=== PATIENT | female | born 1945 | race Caucasian/White ===

== ENCOUNTER 2019-06-27 05:13 | Emergency (ER) | payer MEDICARE, BC ==
[~2019-06-27] VITALS: Ht 170.2 cm; Wt 90.7 kg
--- NOTE | 2019-06-27 05:20 | NUR ---
Patient BIB [facility] from home for c/o back pain for 2 weeks from thoracic are down to lumbar area. Stated pain mostlyon right sidei f back and now also having on left side on back. Patient states she took Clayton 10mg 5hrs [employer] and Soma 3hrs ago but was ineffective. Patient AAOX4. No cardiovascular concern. Denies any SOB. NO /GI concern.
--- NOTE | 2019-06-27 05:22 | NUR ---
Dr. Mulligan at bedside for MSE.
[2019-06-27] MEDS ORDERED: HYDROMORPHONE 1 MG/1 ML DISP.SYRIN ONE (05:31)
[2019-06-27] MEDS: HYDROMORPHONE 1 MG/1 ML DISP.SYRIN IM ONE (05:35)
[2019-06-27] MEDS: IV NS 1000 ML 1,000 ML IV ONE (05:55)
[2019-06-27] MEDS ORDERED: KETOROLAC TROMETHAMINE 15 MG INJ ONE (06:00)
[2019-06-27] MEDS: KETOROLAC TROMETHAMINE 15 MG INJ IVP ONE (06:03)
[2019-06-27 06:16] LABS: BASOPHILS # (AUTO) 0.1 K/uL (0.0-8.0); BASOPHILS % (AUTO) 0.9 % (0.0-2.0); EOSINOPHILS # (AUTO) 0.1 K/uL (0.0-0.7); EOSINOPHILS % (AUTO) 1.5 % (0.0-7.0); HEMATOCRIT 39.2 % (31.2-41.9); HEMOGLOBIN 12.9 g/dL (10.9-14.3); LYMPHOCYTES # (AUTO) 2.1 K/uL (20.0-40.0); LYMPHOCYTES % (AUTO) 35.1 % (20.5-51.5); MEAN CORPUSCULAR HEMOGLOBIN 29.8 uug (24.7-32.8); MEAN CORPUSCULAR HGB CONC 33 g/dL (32.3-35.6); MEAN CORPUSCULAR VOLUME 90.3 fL (75.5-95.3); MONOCYTES # (AUTO) 0.5 K/uL (2.0-10.0); MONOCYTES % (AUTO) 8.7 % (0.0-11.0); NEUTROPHILS # (AUTO) 3.2 K/uL (1.8-8.9); NEUTROPHILS % (AUTO) 53.8 % (38.5-71.5); PLATELET COUNT (AUTO) 198 K/uL (179-408); RED BLOOD CELL COUNT(AUTO) 4.34 MIL/uL (3.63-4.92); WHITE BLOOD COUNT (AUTO) 5.9 K/uL (3.8-11.8)
--- NOTE | 2019-06-27 06:30 | NUR ---
Patient asleep with O2 sat at 88% on RA. When awaken denied any SOB. O2 sat went up to 95-97% right away. Applied O2 at 2LPM via NC. Continue to monitor.
[2019-06-27 06:31] LABS: CARBON DIOXIDE 25 mmol/L (21-32); CHLORIDE 106 mmol/L (98-107); GLUCOSE 87 mg/dL (74-106); MAGNESIUM 1.9 mg/dL (1.8-2.4); POTASSIUM 3.6 mmol/L (3.5-5.1); UREA NITROGEN, BLOOD 27 mg/dL (7-18)
--- NOTE | 2019-06-27 06:35 | NUR ---
Dr. Villagomez at bedside. Removed O2. O2 sat at 93% on RA. Patient denies any further pain at this time. Denies any SOB.
--- NOTE | 2019-06-27 07:23 | NUR ---
Patient discharged to home in stable conditon. Written and verbal after care instructions given. Patient verbalizes understanding of instructions. Patient ambulated from the ER with steady gait. All belongings with patient.
[2019-06-27 07:24] VITALS: BP 121/79
== END 2019-06-27 07:25 | disposition home or self-care (01) ==
LOC: ER 05:18
DX: M54.6 Pain in thoracic spine (principal); Z88.8 Allergy status to other drugs, medicaments and biological substances
CPT/HCPCS: 36415; 80048; 83735; 85025; 96372; 96374; 99283; J1170; J1885; A4663; J7030